=== PATIENT | female | born 1975 | race Caucasian/White ===

== ENCOUNTER 2017-12-07 07:38 | Emergency (ER) | payer OTHER, SELFPAY ==
[2017-12-07 07:51] VITALS: BP 120/83; PULSE 93; RESP 20; TEMP 37.3; O2SAT 98; BMI 30.7
--- NOTE | 2017-12-07 08:08 | DI.US.S_ITS ---
PROCEDURE: US PELVIC COMPLETE INDICATIONS: PAIN, SPOTTING TECHNIQUE: Real-time scanning was performed of the pelvic organs, with image documentation. Additional endovaginal scanning was necessary due to incomplete visualization of the adnexal and endometrial structures by transabdominal scanning. COMPARISON: [facility], US, PELVIC COMPLETE, 04/28/2017, 15:10. FINDINGS: Transabdominal scanning: Limited scanning through the kidneys shows no hydronephrosis. No pathologic free abdominal or pelvic fluid. Endovaginal scanning: Uterus: Uterus is normal in size at 9.4 x 5.4 x 7.1 cm. The endometrium measures 13.1 mm in combined thickness. There is a mid anterior, mid, intramural focus of heterogenicity measuring 13 x 7 x 16 mm. Previously identified focus of increased vascularity within the endometrium as noted on prior exam is not visualized on today's study. Ovaries: Right ovary measures 15 x 25 x 23 mm. A focus of hypoechogenicity is identified measuring 21 x 13 x 16 mm. The left ovary measures 40 x 36 x 38 mm. It is unremarkable. There is approximately 13 cc of fluid in the cul-de-sac, with areas of low level echoes. IMPRESSION: 1. Uterine fibroid. 2. Fluid within the cul-de-sac demonstrating low level echoes which could be represent a complex fluid such as blood. Etiology is uncertain. Dictated by: Tova Grider M.D. on 12/07/2017 at 8:44 Approved by: Tova Grider M.D. on 12/07/2017 at 8:49
[2017-12-07 08:52] LABS: Bacteria Urine None Seen
[2017-12-07 08:56] LABS: Add Manual Diff / Slide Review NO; Basophils Percent Auto 0.7 % (0-2); Eosinophils Percent Auto 1.3 % (2-4); Hematocrit 38.4 % (36-46); Hemoglobin 12.6 g/dL (12.0-16.0); Lymphocytes Percent Auto 19.7 % (25-40); Mean Corpuscular HGB Conc 32.9 % (30-36); Mean Corpuscular Hemoglobin 27.7 PG (26-34); Mean Corpuscular Volume 84.3 fL (80-100); Monocytes Percent Auto 5.7 % (3-14); Neutrophils Absolute Auto 8300 /uL (3000-5900); Neutrophils Percent Auto 72.6 % (50-75); Platelet Count 309 X10^3/uL (150-400); Red Blood Cell Count 4.56 X10^6/uL (4.0-5.2); Red Cell Distribution Width 14.1 % (11.6-14.8); White Blood Cell Count 11.5 X10^3/uL (4.5-11.0)
[2017-12-07] MEDS: SODIUM CHLORIDE 0.9% 1,000 ML 1000 ML IV (08:59)
[2017-12-07] MEDS: KETOROLAC 15 MG/ML VIAL IV (08:59)
[2017-12-07 09:08] LABS: Alanine Aminotransferase 42 IU/L (9-52); Albumin 4.2 g/dL (3.5-5.0); Albumin Globulin Ratio 1.3 (1.0-2.8); Alkaline Phosphatase 77 U/L (38-126); Aspartate Aminotransferase 25 IU/L (14-36); BUN Creatinine Ratio 17.1 (6-22); Bilirubin Total 0.8 mg/dL (0.2-1.3); Blood Urea Nitrogen 12 mg/dL (7-17); Carbon Dioxide 25 mmol/L (22-32); Chloride 105 mmol/L (98-107); Estimated Glomerular Filt Rate > 60.0 mL/min (>60); Globulin 3.3 g/dL (1.7-4.1); Glucose 115 mg/dL (70-100); HEMOLYSIS < 15 (0-50); Potassium 4.1 mmol/L (3.4-5.1); Sodium 142 mmol/L (137-145); Total Protein 7.5 g/dL (6.3-8.2)
[2017-12-07 09:13] LABS: Amorphous Sediment Urine 2+; Culture Indicated Urine Specimen Cultured; RBC Urine 10-30/HPF (0-5/HPF); WBC Urine 5-10/HPF (0-5/HPF)
--- NOTE | 2017-12-07 09:16 | ED_ITS ---
HPI - Abdominal Pain General Chief Complaint: Abdominal Pain Stated Complaint: ABDOMINAL CRAMPS Time Seen by Provider: 12/07/17 07:41 Source: patient and family Mode of arrival: ambulatory Limitations: no limitations History of Present Illness HPI narrative: Patient with history endometrial ablation in April presents to the emergency department with 7 days episodic pelvic cramping with vaginal spotting. She has not had period since the procedure and states the spotting is the 1st vaginal bleeding since April. She states it feels like she is in labor. The intense pain last perhaps 1 min with about a 10 min break until the next episode. She denies provocation, palliation or radiation. She has had no fever or chills. MD complaint: abdominal pain Onset (ago): day(s) Pain Consistency: intermittent Location: suprapubic Severity: severe Quality: cramping Radiation: none Migration to: no migration Relieving factors: nothing Exacerbating factors: nothing Associated symptoms: nausea (With pain) Related Data Home Medications Medication Instructions Recorded Confirmed VITAMIN D (Vitamin D3) 5,000 mg OR Q DAY #0 04/28/17 norethindrone (contraceptive) #84 04/30/17 [Jolivette] Previous Rx's Medication Instructions Recorded medroxyprogesterone 20 mg PO Q2HP PRN #30 tab 04/28/17 cephalexin [Keflex] 500 mg PO QID 5 Days #20 cap 12/07/17 hydrocodone-acetaminophen 1 tab PO Q4-6H PRN #14 tab 12/07/17 ondansetron [Zofran ODT] 4 mg PO Q6H PRN #14 tab 12/07/17 Allergies Allergy/AdvReac Type Severity Reaction Status Date / Time No Known Allergies Allergy Uncoded 12/07/17 07:55 Review of Systems Review of Systems All systems reviewed & are unremarkable except as noted in HPI and below Constitutional Denies chills, Denies fever(s), Denies lethargy and Denies weakness Eyes Denies change in vision, Denies eye discharge, Denies irritation and Denies loss of vision ENT Ears, Nose, Mouth, and Throat: Denies change in voice, Denies neck pain and Denies sore throat Cardiovascular Denies chest pain, Denies irregular heart rhythm, Denies lightheadedness, Denies palpitations, Denies dyspnea, Denies dyspnea on exertion and Denies orthopnea Respiratory Denies cough, Denies dyspnea, Denies dyspnea on exertion and Denies wheezing Gastrointestinal Gastrointestinal: Denies abdominal pain, Denies change in bowel habits, Denies diarrhea, Denies nausea and Denies vomiting Genitourinary Reports abnormal vaginal bleeding, Denies hematuria, Reports pelvic pain, Denies flank pain, Denies urinary incontinence and Denies urinary urgency Musculoskeletal Denies neck pain Integumentary/Breasts Denies pruritus, Denies erythema, Denies rash and Denies wounds Neurologic Denies confusion, Denies loss of vision and Denies weakness Psychiatric Denies anxiety, Denies confusion, Denies depression, Denies homicidal ideation and Denies suicidal ideation Endocrine Denies palpitations Hematologic/Lymphatic Denies easy bruising Allergic/Immunologic Denies wheezing PFSH Surgical History Status post delivery Status post dilation and curettage (04/29/17) Social History Smoking Status: Never smoker Exam Narrative Exam Narrative: Pleasant 41-year-old female in no obvious distress, not currently having pain, between episodes Initial Vital Signs Initial Vital Signs: Vital Signs Temperature 99.1 F 12/07/17 07:51 Pulse Rate 93 H 12/07/17 07:51 Respiratory Rate 20 12/07/17 07:51 Blood Pressure 120/83 H 12/07/17 07:51 Pulse Oximetry 98 12/07/17 07:51 Const General: cooperative and well developed Nutritional Appearance: well nourished Orientation: alert, awake, oriented x3 and not confused [facility] Head: normocephalic and atraumatic Ears: external ears normal and TM's normal bilaterally Nose: external nose normal and No nasal discharge Face and sinus: sinuses nontender, face symmetric, no sinus tenderness and No dry mucous membranes Mouth: oral mucosae normal and moist mucous membranes Teeth and gingiva: dentition normal Throat: tonsils normal and uvula midline Resp Effort & Inspection: normal respiratory effort, able to speak in complete sentences, no respiratory distress and no use of accessory muscles Auscultation: clear to auscultation bilaterally, no rales, no rhonchi and no wheezes GI Inspection: non-distended Palpation: soft, no hepatosplenomegaly, No guarding, No pulsatile mass and tender (Suprapubic) Auscultation: normal bowel sounds Back/Spine/Pelvis Back: No CVA tenderness Cervical Spine: cervical ROM normal and No pain with cervical ROM Thoracic/Lumbar Spine: thoracic and lumbar spine normal to inspection Neuro General: alert, awake and oriented x3 Cognition: normal cognition Speech: speech normal Psych Appearance: grossly normal and well kempt Mental Status: mental status grossly normal Speech and Movement: speech and movement normal Mood: congruent mood Affect: normal affect Course Orders Ordered: ED Orders 12/07/17 08:08 US pelvic complete Stat 12/07/17 08:40 Complete Blood Count AUTO DIFF Stat Comprehensive Metabolic Panel Stat Urine Culture Stat Urine Microscopic Stat Discontinued Medications Sodium Chloride (Normal Saline 0.9%) 1,000 mls @ 1,000 mls/hr IV BOLUS ONE Stop: 12/07/17 09:07 Last Infusion: 12/07/17 09:56 Dose: 0 mls/hr Admin: 12/07/17 08:59 Dose: 1,000 mls/hr Ketorolac Tromethamine (Toradol) 15 mg IV NOW ONE Stop: 12/07/17 08:09 Last Admin: 12/07/17 08:59 Dose: 15 mg Vital Signs - 8 hr 12/07/17 09:56 12/07/17 10:47 Temperature 99.1 F 99.1 F Pulse Rate 73 Respiratory Rate 18 Blood Pressure 110/71 Pulse Oximetry 99 MDM - Abdominal Pain Lab Data Result diagrams: 12/07/17 08:40 12/07/17 08:40 Lab Results 12/07/17 12/07/17 12/07/17 Range/Units 08:40 08:40 08:40 WBC 11.5 H (4.5-11.0) X10^3/uL RBC 4.56 (4.0-5.2) X10^6/uL Hgb 12.6 (12.0-16.0) g/dL Hct 38.4 (36-46) % MCV 84.3 (80-100) fL MCH 27.7 (26-34) PG MCHC 32.9 (30-36) % RDW 14.1 (11.6-14.8) % Plt Count 309 (150-400) X10^3/uL Neut % (Auto) 72.6 (50-75) % Lymph % (Auto) 19.7 L (25-40) % [place] % (Auto) 5.7 (3-14) % Eos % (Auto) 1.3 L (2-4) % Baso % (Auto) 0.7 (0-2) % Neut # (Auto) 8300 H (0165-5021) /uL Sodium 142 (137-145) mmol/L Potassium 4.1 (3.4-5.1) mmol/L Chloride 105 (98-107) mmol/L Carbon Dioxide 25 (22-32) mmol/L BUN 12 (7-17) mg/dL Creatinine 0.70 (0.52-1.04) mg/dL Estimated GFR > 60.0 (>60) mL/min BUN/Creatinine Ratio 17.1 (6-22) Glucose 115 H (70-100) mg/dL Calcium 9.0 (8.4-10.2) mg/dL Total Bilirubin 0.8 (0.2-1.3) mg/dL AST 25 (14-36) IU/L ALT 42 (9-52) IU/L Alkaline Phosphatase 77 (38-126) U/L Total Protein 7.5 (6.3-8.2) g/dL Albumin 4.2 (3.5-5.0) g/dL Globulin 3.3 (1.7-4.1) g/dL Albumin/Globulin Ratio 1.3 (1.0-2.8) Urine RBC 10-30/hpf H (0-5/HPF) Urine WBC 5-10/hpf H (0-5/HPF) Amorphous Sediment 2+ Urine Bacteria None seen (None) Ur Culture Indicated? Specimen cultured Micro UA Comment Not Reportable Imaging Data US - pelvis: Radiologist's impression: PROCEDURE: US PELVIC COMPLETE INDICATIONS: PAIN, SPOTTING TECHNIQUE: Real-time scanning was performed of the pelvic organs, with image documentation. Additional endovaginal scanning was necessary due to incomplete visualization of the adnexal and endometrial structures by transabdominal scanning. COMPARISON: [facility], US, PELVIC COMPLETE, 04/28/2017, 15:10. FINDINGS: Transabdominal scanning: Limited scanning through the kidneys shows no hydronephrosis. No pathologic free abdominal or pelvic fluid. Endovaginal scanning: Uterus: Uterus is normal in size at 9.4 x 5.4 x 7.1 cm. The endometrium measures 13.1 mm in combined thickness. There is a mid anterior, mid, intramural focus of heterogenicity measuring 13 x 7 x 16 mm. Previously identified focus of increased vascularity within the endometrium as noted on prior exam is not visualized on today's study. Ovaries: Right ovary measures 15 x 25 x 23 mm. A focus of hypoechogenicity is identified measuring 21 x 13 x 16 mm. The left ovary measures 40 x 36 x 38 mm. It is unremarkable. There is approximately 13 cc of fluid in the cul-de-sac, with areas of low level echoes. IMPRESSION: 1. Uterine fibroid. 2. Fluid within the cul-de-sac demonstrating low level echoes which could be represent a complex fluid such as blood. Etiology is uncertain. Dictated by: Tova Grider M.D. on 12/07/2017 at 8:44 Approved by: Tova Grider M.D. on 12/07/2017 at 8:49 Discharge Plan Departure Patient Disposition: Home, Self-Care Clinical Impression: Pelvic pain, UTI (urinary tract infection) Discharge Date/Time: 12/07/17 09:55 Interventions: ED Discharge Assessment Last Done: 12/07/17 10:47 Instructions: DI for Urinary Tract Infection (UTI), DI for Pelvic Pain Activity Restrictions/Additional Instructions: *You have been diagnosed with [ pelvic pain, UTI ] *What to do: *Take medications as directed *Follow up with your primary care provider in 2-3 days *Return to ER if you should have any new, worsening or concerning symptoms Prescriptions: New hydrocodone-acetaminophen 5-325 mg tablet 1 tab PO Q4-6H PRN (Reason: pain) Qty: 14 RF: 0 cephalexin [Keflex] 500 mg capsule 500 mg PO QID 5 Days Qty: 20 RF: 0 ondansetron [Zofran ODT] 4 mg tablet,disintegrating 4 mg PO Q6H PRN (Reason: nausea and vomiting) Qty: 14 RF: 0 No Action VITAMIN D (Vitamin D3) 5,000 mg OR Q DAY Qty: 0 RF: 0 medroxyprogesterone 10 MG tablet 20 mg PO Q2HP PRNQty: 30 RF: 0 norethindrone (contraceptive) [Jolivette] 0.35 MG tablet Qty: 84 RF: 0
[2017-12-07 09:56] VITALS: TEMP 37.3
[2017-12-07 10:47] VITALS: BP 110/71; PULSE 73; RESP 18; TEMP 37.3; O2SAT 99
== END 2017-12-07 09:55 | disposition home or self-care (01) ==
PROVIDERS: Emergency Provider Emergency Medicine
DX: N39.0 Urinary tract infection, site not specified (principal); R10.9 Unspecified abdominal pain
CPT/HCPCS: 36591; 76830; 76856; 80053; 81003; 81015; 81025; 85025; 87086; 96361; 96374; 99283; 99284; J1885

== ENCOUNTER 2020-04-24 14:20 | Emergency (ER) | payer OTHER, SELFPAY ==
[2020-04-24 14:53] VITALS: BP 128/77; PULSE 80; RESP 16; TEMP 37.3; O2SAT 98; BMI 31.7
[2020-04-24 15:47] LABS: Add Manual Diff / Slide Review NO; Basophils Absolute Auto 100 /uL (0-100); Basophils Percent Auto 0.8 % (0-2); Eosinophils Absolute Auto 200 /uL (0-450); Eosinophils Percent Auto 1.5 % (2-4); Hematocrit 39.3 % (36-46); Hemoglobin 12.8 g/dL (12.0-16.0); Lymphocytes Absolute Auto 3300 /uL (1100-4500); Lymphocytes Percent Auto 27.6 % (25-40); Mean Corpuscular HGB Conc 32.5 % (30-36); Mean Corpuscular Hemoglobin 27.9 PG (26-34); Mean Corpuscular Volume 85.9 fL (80-100); Monocytes Absolute Auto 700 /uL (0-900); Monocytes Percent Auto 5.9 % (3-14); Neutrophils Absolute Auto 7800 /uL (1500-7000); Neutrophils Percent Auto 64.2 % (50-75); Platelet Count 318 X10^3/uL (150-400); Red Blood Cell Count 4.58 X10^6/uL (4.0-5.2); Red Cell Distribution Width 13.2 % (11.6-14.8); White Blood Cell Count 12.1 X10^3/uL (4.5-11.0)
--- NOTE | 2020-04-24 15:52 | ED_ITS ---
HPI - General Adult General Chief complaint: Abdominal Pain Stated complaint: ABD PAIN Time Seen by Provider: 04/24/20 15:33 Source: patient Mode of arrival: Ambulatory Limitations: no limitations History of Present Illness HPI narrative: Patient is a 44-year-old female here for evaluation of pelvic cramping, bilateral lower abdominal pain and also some discomfort with having bowel movements. She denies any urinary symptoms. She states that several years ago she had vaginal bleeding to the point where she needed a blood transfusion and needed a endometrial ablation. She had that done here at this hospital. States since then she has not had a menstrual cycle. She is not currently on control. Approximately 4 days ago patient started having the symptoms that she presented with emergency department today. States she still can have a bowel movement and is only slightly tender. She does not feel like it changes her abdominal tenderness at all. She is not currently having any vaginal bleeding. No chest pain. No shortness of breath. No nausea or vomiting. Has not tried anything for symptoms prior to arrival. Related Data Home Medications Medication Instructions Recorded Confirmed VITAMIN D (Vitamin D3) 5,000 mg OR Q DAY #0 04/28/17 12/14/17 norethindrone (contraceptive) #84 04/30/17 12/14/17 [Tim] Previous Rx's Medication Instructions Recorded medroxyprogesterone 20 mg PO Q2HP PRN #30 tab 04/28/17 hydrocodone-acetaminophen 1 tab PO Q4-6H PRN #14 tab 12/07/17 ondansetron [Zofran ODT] 4 mg PO Q6H PRN #14 tab 12/07/17 Allergies Allergy/AdvReac Type Severity Reaction Status Date / Time No Known Allergies Allergy Uncoded 12/14/17 13:00 Review of Systems Constitutional Constitutional: Denies fever(s) and Denies headache(s) ENT Ears, Nose, Mouth, and Throat: Denies headache(s) Cardiovascular Cardiovascular: Denies chest pain and Denies dyspnea Respiratory Respiratory: Denies dyspnea Gastrointestinal Gastrointestinal: Reports abdominal pain, Denies nausea and Denies vomiting Comments: Pain with bowel movements Genitourinary Genitourinary: Denies dysuria Genitourinary: Denies dysuria and Denies vaginal discharge Musculoskeletal Musculoskeletal: Denies arthralgias and Denies arthralgias Integumentary/Breasts Skin/Breast: Denies lesions and Denies rash Neurologic Neurologic: Denies behavioral changes and Denies headache(s) Psychiatric Psychiatric: Denies anxiety and Denies behavioral changes Hematologic/Lymphatic Hematologic/Lymphatic: Denies easy bleeding and Denies easy bruising Patient History Medical History Acute blood loss anemia (Inactive) Menorrhagia (Inactive) Palpitations (Inactive) Transfusion of blood during current hospitalisation (Inactive) Surgical History (Updated 12/11/17 @ 12:03 by Gail Chavez) Status post delivery (Resolved 2009) Status post dilation and curettage (Resolved 04/29/17) Status post endometrial ablation (Resolved 04/29/17) Social History Smoking Status: Never smoker Smoking Status: Never smoker alcohol intake frequency: holidays/special occasions only Substance Use Type: does not use Exam Initial Vital Signs Initial Vital Signs: Vital Signs Temperature 99.1 F 04/24/20 14:53 Pulse Rate 80 04/24/20 14:53 Respiratory Rate 16 04/24/20 14:53 Blood Pressure 128/77 04/24/20 14:53 Pulse Oximetry 98 04/24/20 14:53 Const General: cooperative and comfortable Limitations: mental status not altered HENMT Head: normal to inspection and normocephalic Resp Effort & Inspection: normal respiratory effort Auscultation: clear to auscultation bilaterally Cardio Rate: regular rate Rhythm: regular rhythm GI Inspection: non-distended Palpation: soft, No firm and tender (Bilateral lower abdomen without rebound or guarding) Back/Spine/Pelvis Back: No CVA tenderness Skin Lesions: no lesions Rashes: no rashes Neuro General: patient alert, patient awake and patient oriented x3 Cognition: normal cognition Speech: speech normal Extrem General: normal to inspection and capillary refill normal Psych Appearance: grossly normal and well kempt Course Orders Ordered: ED Orders 04/24/20 15:42 Complete Blood Count AUTO DIFF Stat Comprehensive Metabolic Panel Stat Lipase Stat Partial Thromboplastin Time Stat Prothrombin Time INR Stat 04/24/20 15:52 US pelvic complete Stat 04/24/20 18:29 CT abdomen pelvis w con Stat Vital Signs Vital signs: Vital Signs - 8 hr 04/24/20 14:53 04/24/20 17:12 Temperature 99.1 F Pulse Rate 80 85 Respiratory Rate 16 16 Blood Pressure 128/77 131/60 Pulse Oximetry 98 99 Medical Decision Making Lab Data Lab results reviewed: Yes I reviewed the patient's lab results. Result diagrams: 04/24/20 15:42 04/24/20 15:42 Labs: Lab Results 04/24/20 04/24/20 04/24/20 Range/Units 15:42 15:42 15:42 WBC 12.1 H (4.5-11.0) X10^3/uL RBC 4.58 (4.0-5.2) X10^6/uL Hgb 12.8 (12.0-16.0) g/dL Hct 39.3 (36-46) % MCV 85.9 (80-100) fL MCH 27.9 (26-34) PG MCHC 32.5 (30-36) % RDW 13.2 (11.6-14.8) % Plt Count 318 (150-400) X10^3/uL Neut % (Auto) 64.2 (50-75) % Lymph % (Auto) 27.6 (25-40) % Evans % (Auto) 5.9 (3-14) % Eos % (Auto) 1.5 L (2-4) % Baso % (Auto) 0.8 (0-2) % Neut # (Auto) 7800 H (8300-2427) /uL Lymph # (Auto) 3300 (4318-9386) /uL Evans # (Auto) 700 (0-900) /uL Eos # (Auto) 200 (0-450) /uL Baso # (Auto) 100 (0-100) /uL PT 11.8 (10.1-12.7) SECONDS INR 1.0 (0.9-1.3) APTT 34 (26.4-36.2) SECONDS Sodium 138 (137-145) mmol/L Potassium 4.1 (3.4-5.1) mmol/L Chloride 105 (98-107) mmol/L Carbon Dioxide 27 (22-32) mmol/L BUN 13 (7-17) mg/dL Creatinine 0.74 (0.52-1.04) mg/dL Estimated GFR > 60.0 (>60) mL/min BUN/Creatinine Ratio 17.6 (6-22) Glucose 90 (70-100) mg/dL Calcium 9.4 (8.4-10.2) mg/dL Total Bilirubin 0.6 (0.2-1.3) mg/dL AST 45 H (14-36) IU/L ALT 58 H (<35) IU/L Alkaline Phosphatase 88 (38-126) U/L Total Protein 8.2 (6.3-8.2) g/dL Albumin 4.5 (3.5-5.0) g/dL Globulin 3.7 (1.7-4.1) g/dL Albumin/Globulin Ratio 1.2 (1.0-2.8) Lipase 115 (23-300) U/L Point of Care Testing Test Results Negative Urine Dip Bedside Urine Glucose Negative Bedside Urine Bilirubin - Negative Bedside Urine Ketone - Negative Urine Specific [place] 1.015 Bedside Urine Occult Blood +++ Bedside Urine pH 6.0 Bedside Urine Protein - Negative Bedside Urine Urobilinogen - Negative Bedside Urine Nitrite - Negative Bedside Urine Leukocytes - Negative Esterase Point of care testing: Point of Care Testing Test Results Negative Urine Dip Bedside Urine Glucose Negative Bedside Urine Bilirubin - Negative Bedside Urine Ketone - Negative Urine Specific [place] 1.015 Bedside Urine Occult Blood +++ Bedside Urine pH 6.0 Bedside Urine Protein - Negative Bedside Urine Urobilinogen - Negative Bedside Urine Nitrite - Negative Bedside Urine Leukocytes - Negative Esterase Imaging Data CT scan - abdomen/pelvis: Radiologist's Impression: [address] [address] [address] Scan Report Signed Patient: Laura De La Rosa BMR#: [id number] : 1975Acct:[id number] Age/Sex: 44 / FDate of Service: 04/24/20 Loc: ED Accession Number: [id number] Procedure: CT abdomen pelvis w con Ordering Provider: Dax Post D.O. PROCEDURE: CT ABDOMEN PELVIS W CON INDICATIONS: Lower abdominal pain with rectal pain TECHNIQUE: After the administration of intravenous contrast, 5 mm thick sections acquired from the diaphragm to the symphysis. 5 mm coronal and sagittal reformats were acquired. For radiation dose reduction, the following was used: automated exposure control, adjustment of mA and/or kV according to patient size. COMPARISON: [facility], PELVIC COMPLETE, 04/24/2020, 16:10. [facility], [place] PELVIC COMPLETE, 12/07/2017, 8:18. FINDINGS: Image quality: Excellent. ABDOMEN: Lung bases: Lung bases are clear. Heart size is normal. Solid organs: Liver is enlarged with steatosis. Gallbladder is unremarkable . Biliary system is non dilated. Pancreas enhances normally. Spleen is normal in size and enhancement. No adrenal nodules. Kidneys demonstrate normal size and enhancement, without hydronephrosis. Peritoneum and bowel: Bowel loops demonstrate normal wall thickness and caliber. No free fluid or air. Nodes and vessels: No retroperitoneal or mesenteric adenopathy by size criteria. Aorta and inferior vena cava are normal in size. Miscellaneous: No ventral hernias. PELVIS: Genitourinary: Bladder wall thickness is normal. Bilateral ovarian cysts are present. Appearing contiguous with the left adnexa and coursing along the left lateral aspect of the uterus, low-attenuation collection is identified measuring 5.2 cm in transverse dimension. There is a minimal appearance of stranding within the adjacent mesenteric fat. This corresponds to area of abnormality identified on ultrasound. Miscellaneous: No inguinal hernias or adenopathy. Bones: No suspicious bony lesions. No vertebral body compression fractures. IMPRESSION: 1. Low-attenuation collections suggestive of fluid appearing contiguous with the left adnexa and uterus. It is somewhat nonspecific in appearance on both ultrasound and CT exam. Differential diagnosis includes hydro/pyosalpinx or abscess. Recommend short interval imaging follow-up after appropriate therapy to document resolution as well as CHIEF LOAD DISPATCHER consult is indicated. Dictated by: Tova Grider M.D. on 04/24/2020 at 18:47 Approved by: Tova Grider M.D. on 04/24/2020 at 19:00 US - CHIEF LOAD DISPATCHER: Radiologist's Impression: [address] [address] Ultrasound Report Signed Patient: Laura De La Rosa BMR#: [id number] : 1975Acct:[id number] Age/Sex: 44 / FDate of Service: 04/24/20 Loc: ED Accession Number: [id number] Procedure: US pelvic complete Ordering Provider: Dax Post D.O. PROCEDURE: US PELVIC COMPLETE INDICATIONS: CRAMPING AND NO PERIOD FOR 3 YEARS. TECHNIQUE: Real-time scanning was performed of the pelvic organs, with image documentation. Additional endovaginal scanning was necessary due to incomplete visualization of the adnexal and endometrial structures by transabdominal scanning. COMPARISON: [facility], [place], US PELVIC COMPLETE, 12/07/2017, 8:18. FINDINGS: Transabdominal scanning: Limited scanning through the kidneys shows no hydronephrosis. No pathologic free abdominal or pelvic fluid. Endovaginal scanning: Uterus: Uterus is normal in size at 11.7 x 7.3 6.5 cm. The endometrium measures 12.8 mm in combined thickness. There is a mid anterior intramural focus of heterogenous echognicity measuring 13 mm x 14 mm x 13 mm compared to 13 mm x 7 mm x 16 mm. Similar focus of echogenicity in the right anterior intramural focus measruing 11 mm x 10 mm x 8 mm. Nabothian cysts are noted. Ovaries: Right ovary measuring 45 mm x 29 mm x 26 mm. Left ovary measures 75 mm x 60 mm x 45 mm. Right ovarian cyst measures 26 mm x 19 mm x 15 mm. Left ovarian cyst is noted measuring 36 x 40 x 41 mm. There is a tubular structure extending within the region of the left adnexa. IMPRESSION: 1. Bilateral ovarian cysts. 2. Tubular structure within the region of the left adnexa. [place]/pyosalpinx cannot be excluded. 3. Foci of heterogeneous echogenicity are present within the uterus suggestive of small fibroids. Dictated by: Tova Grider M.D. on 04/24/2020 at 17:32 Approved by: Tova Grider M.D. on 04/24/2020 at 17:50 MDM Narrative Medical decision making narrative: Patient does have a leukocytosis without a left shift. She is afebrile. She does have a benign exam. Initially started with a ultrasound which showed the left-sided findings. Also bilateral ovarian cyst. I did discuss the case with Dr. Bruce who is on-call for ceramic chemist who stated that this is most likely hydrosalpinx after her ablation and recommended the patient follow-up in her clinic. I went back and discussed this with the patient. I did feel that given her issues with bowel movements that a CT scan would be warranted to evaluate other potential etiology. This was ordered and does for the most part support the findings on the ultrasound. There was some question on the ultrasound and the CT scan about a potential abscess and this wa s considered given her leukocytosis but I feel given the lack of her other symptoms and the lack of a left shift despite the leukocytosis in the lack of a fever that we will hold on antibiotics for now. Patient was given follow-up instruction in phone number for Dr. Bruce. Patient was given strict return precautions. She expressed understanding and agreement. Discharge Plan Departure Patient Disposition: Home Clinical Impression: Hydrosalpinx Instructions: DI for Abdominal Pain-Adult Activity Restrictions/Additional Instructions: I did discuss her case this evening with Dr. Bruce. She would like to see you in clinic in follow-up. You can contact the [facility] at [phone]. If you do not hear from them by tomorrow morning please contact them for a follow-up. Return to the emergency department for any new or worsening symptoms like we discussed Prescriptions: No Action VITAMIN D (Vitamin D3) 5,000 mg OR Q DAY Qty: 0 RF: 0 medroxyprogesterone 10 MG tablet 20 mg PO Q2HP PRNQty: 30 RF: 0 norethindrone (contraceptive) [[place]] 0.35 MG tablet Qty: 84 RF: 0 hydrocodone-acetaminophen 5-325 mg tablet 1 tab PO Q4-6H PRN (Reason: pain) Qty: 14 RF: 0 ondansetron [Zofran ODT] 4 mg tablet,disintegrating 4 mg PO Q6H PRN (Reason: nausea and vomiting) Qty: 14 RF: 0
[2020-04-24 15:54] LABS: Prothrombin Time 11.8 SECONDS (10.1-12.7)
[2020-04-24 15:57] LABS: PTT Partial Thromboplastin Tim 34 SECONDS (26.4-36.2)
[2020-04-24 16:00] LABS: Alanine Aminotransferase 58 IU/L (<35); Albumin 4.5 g/dL (3.5-5.0); Albumin Globulin Ratio 1.2 (1.0-2.8); Alkaline Phosphatase 88 U/L (38-126); Aspartate Aminotransferase 45 IU/L (14-36); BUN Creatinine Ratio 17.6 (6-22); Bilirubin Total 0.6 mg/dL (0.2-1.3); Blood Urea Nitrogen 13 mg/dL (7-17); Calcium 9.4 mg/dL (8.4-10.2); Carbon Dioxide 27 mmol/L (22-32); Chloride 105 mmol/L (98-107); Estimated Glomerular Filt Rate > 60.0 mL/min (>60); Globulin 3.7 g/dL (1.7-4.1); Glucose 90 mg/dL (70-100); HEMOLYSIS < 15 (0-50); Lipase 115 U/L (23-300); Potassium 4.1 mmol/L (3.4-5.1); Sodium 138 mmol/L (137-145); Total Protein 8.2 g/dL (6.3-8.2)
[2020-04-24 17:12] VITALS: BP 131/60; PULSE 85; RESP 16; O2SAT 99
--- NOTE | 2020-04-24 18:29 | DI.CT.S_ITS ---
PROCEDURE: CT ABDOMEN PELVIS W CON INDICATIONS: Lower abdominal pain with rectal pain TECHNIQUE: After the administration of intravenous contrast, 5 mm thick sections acquired from the diaphragm to the symphysis. 5 mm coronal and sagittal reformats were acquired. For radiation dose reduction, the following was used: automated exposure control, adjustment of mA and/or kV according to patient size. COMPARISON: [facility], , PELVIC COMPLETE, 04/24/2020, 16:10. [facility], , PELVIC COMPLETE, 12/07/2017, 8:18. FINDINGS: Image quality: Excellent. ABDOMEN: Lung bases: Lung bases are clear. Heart size is normal. Solid organs: Liver is enlarged with steatosis. Gallbladder is unremarkable . Biliary system is non dilated. Pancreas enhances normally. Spleen is normal in size and enhancement. No adrenal nodules. Kidneys demonstrate normal size and enhancement, without hydronephrosis. Peritoneum and bowel: Bowel loops demonstrate normal wall thickness and caliber. No free fluid or air. Nodes and vessels: No retroperitoneal or mesenteric adenopathy by size criteria. Aorta and inferior vena cava are normal in size. Miscellaneous: No ventral hernias. PELVIS: Genitourinary: Bladder wall thickness is normal. Bilateral ovarian cysts are present. Appearing contiguous with the left adnexa and coursing along the left lateral aspect of the uterus, low-attenuation collection is identified measuring 5.2 cm in transverse dimension. There is a minimal appearance of stranding within the adjacent mesenteric fat. This corresponds to area of abnormality identified on ultrasound. Miscellaneous: No inguinal hernias or adenopathy. Bones: No suspicious bony lesions. No vertebral body compression fractures. IMPRESSION: 1. Low-attenuation collections suggestive of fluid appearing contiguous with the left adnexa and uterus. It is somewhat nonspecific in appearance on both ultrasound and CT exam. Differential diagnosis includes hydro/pyosalpinx or abscess. Recommend short interval imaging follow-up after appropriate therapy to document resolution as well as AUTOC[employer] ELECTRICAL DESIGNER consult is indicated. Dictated by: Tova Grider M.D. on 04/24/2020 at 18:47 Approved by: oTva Grider M.D. on 04/24/2020 at 19:00
== END 2020-04-24 19:16 | disposition home or self-care (01) ==
PROVIDERS: Emergency Provider Emergency Medicine
DX: N70.11 Chronic salpingitis (principal); R10.30 Lower abdominal pain, unspecified; K62.89 Other specified diseases of anus and rectum; R10.2 Pelvic and perineal pain
CPT/HCPCS: 36415; 74177; 76856; 80053; 81003; 81025; 83690; 85025; 85610; 85730; 99284; Q9967

== ENCOUNTER → 2020-05-30 07:59 | Outpatient (CLI) | payer OTHER, SELFPAY ==
[2020-05-30 09:02] LABS: COVID19 -Nasal RAPID Negative (Negative)
== END ==
PROVIDERS: Visit Provider Obstetrics & Gynecology
DX: Z01.812 Encounter for preprocedural laboratory examination (principal); Z20.828 Contact with and (suspected) exposure to other viral communicable diseases
CPT/HCPCS: 87635

== ENCOUNTER 2020-05-31 06:26 | Day surgery (SDC) | payer OTHER, SELFPAY ==
[2020-05-30 12:05] VITALS: BMI 32.2
[2020-05-31] VITALS (11 sets, daily range): BP systolic 104–120; BP diastolic 61–95; PULSE 73–96; RESP 14–19; TEMP 36.4–36.8; O2SAT 95–100; BMI 32.2
--- NOTE | 2020-05-31 | PATH_ITS ---
[facility] Accession Number: [id number] . 01 Material submitted: . PART A: umbilicus - INTRA UMBILICAL MOLE PART B: uterus - UTERUS AND BILATERAL FALLOPIAN TUBES WITH CYSTS . 01 Diagnosis: A. Skin, Intra Umbilical, Biopsy: Final diagnosis pending additional sections/stain (will be reviewed and reported as an addendum by dermatopathology service). . B. Uterus and Bilateral Fallopian Tubes, Supracervical Hysterectomy and Bilateral Salpingectomy: Endometrium: Focal complex hyperplasia without atypia and background disordered proliferative. Myometrium: No significant pathologic abnormality. Bilateral fallopian tubes: Multifocal endometriosis (serosal and subserosal) and benign paratubal cyst. [facility] 06/05/2020 1341 Local . 01 Electronically signed: . Maame Singh MD, Pathologist NPI- [id number] . 01 Gross description: . A. Received in formalin, labeled with the patient's name and intra-umbilical mole, is a light brown unoriented skin shave, 0.6 x 0.5 x 0.3 cm, with a 0.4 x 0.2 cm dark brown keratotic lesion at epidermal surface, 0.1 cm to nearest resection margin (margin inked blue). The specimen is quadrisected and entirely submitted. . Summary of sections: A1. One piece inked blue, quadrisected. . B. Received in formalin, labeled with the patient's name and uterus and bilateral fallopian tubes with cysts, is a supracervically amputated and morcellated uterus, with bilateral fimbriated fallopian tubes in container. The morcellated uterus fragments, 100 grams, 7.0 x 7.0 x 2.5 cm in aggregate, are covered with purple-wilson smooth dull serosa, and consist of pink-wilson trabeculated myometrium, maximum thickness 2.0 cm in one fragment, and pink-wilson flat endometrium up to 0.2 cm thick. No myometrial nodules or lesions identified. The two fimbriated fallopian tubes in the container measure 4.5-6.0 cm length, 0.5-0.8 cm diameter; one fallopian tube has a 2.0 cm paratubal cyst present at distal aspect. Cervix is absent. Tooler sections are submitted. . Summary of sections: B1. Endometrium, two pieces. B2. Endometrium and myometrium, not full-thickness, two pieces. B3. [place] fallopian tube, fimbria and cross-sections, four pieces. B4. Longer fallopian tube, fimbria and cross-section, three pieces. B5. Fallopian tube cross-section with paratubal cyst, one piece. ([id number]) /MRV 06/01/2020 1435 Local . 01 Pathologist provided ICD-10: N94.6 . 01 CPT . 884191, [id number] Performed at: 01 [facility] [address] [place] [address], [place], [place] [id number] MD Karan Rivas MD Phone: [phone]
[2020-05-31] MEDS: LACTATED RINGERS 1,000 ML 42 ML IV (07:10)
[2020-05-31] MEDS: ACETAMINOPHEN 325 MG TABLET 975 MG PO (07:15)
--- NOTE | 2020-05-31 07:39 | PM.PREOP ---
Pre-operative Note COVID-19 COVID-19 status: Negative Result date/Date tested (Pos, Neg/Pending): 05/30/20 Interval Note History & Physical reviewed/Exam performed by Physician: Yes Changes to H&P: No H&P completed within 30 days and has changed as indicated here:: 05/30/20
[2020-05-31] MEDS: CEFAZOLIN 2 GM/100 ML FROZ.PIGGY IV (07:54)
--- NOTE | 2020-05-31 08:27 | SUR.OPER ---
Lithotomy on padded OR bed. [place] Pad Positioner under torso. Head on pillow, arms padded and tucked at sides. Legs secured in padded yellow fins stirrups.
[2020-05-31] MEDS: ROPIVACAINE 0.2% PF 2 MG/ML 10ML AMP 20 ML INJ (08:41)
[2020-05-31] MEDS: BUPIVACAINE 0.5% W/ EPI (PF) 30 ML VIAL INJ (08:42)
--- NOTE | 2020-05-31 09:47 | PM.GYNOP.1 ---
Operative Date/Time/Diagnoses Date of procedure: 05/31/20 Time of procedure: 09:48 Pre-op diagnosis: Fibroid uterus Hydrosalpinx Severe dysmenorrhea Ovarian cyst Status post endometrial ablation Post-op diagnosis: same Procedure & Clinicians Procedure: Procedures Operation Date: 05/31/20 07:45 Actual Procedures Side Surgeon p Laparoscopic Supracervical Hysterectomy/ Bilateral Salpingectomies, Removal of Ovarian Cysts, excision of intra umbilical mole, lysis of adhesions Eli Bruce MD Indications: Fibroid uterus Severe dysmenorrhea Hydrosalpinx Ovarian cyst Status post endometrial ablation Surgeon: Eli Bruce [employer] Light Fixture Assembler: Isha Spangler Anesthesia Type: General and Local Operative Notes Findings: Twelve week size multi fibroid uterus Hydrosalpinx on the left Ovarian cyst on the left Adhesions between the posterior uterus and cul-de-sac Adhesions between the bowel and the left side of the uterus Adhesions between the left adnexa and the uterus Closure Type: primary Specimen(s): left tube, right tube and uterus Applied: catheter (Removed at the end of the case) Estimated blood loss (mL): 75 Blood products transfused: none Procedure in detail: The patient was taken to the operating room where she was placed in the dorsal supine position. After adequate general endotracheal anesthesia was achieved, she was placed in the dorsal lithotomy position, and prepped and draped in the usual sterile fashion. A timeout was performed. A bivalve speculum was placed into the vagina and the anterior lip of the cervix grasped with a single-tooth tenaculum. The cervical os was sequentially dilated until the ZUMI uterine manipulator could pass easily into the endometrial cavity. The single-tooth tenaculum was removed from the anterior lip of the cervix, and the bivalve speculum was removed from the vagina. Attention was then turned to the abdomen where 6 mL of half percent Marcaine with epinephrine were injected in the umbilical fold. A 5 mm incision was made. The Verhees needle was placed into the peritoneal cavity, and its placement confirmed by aspiration and drop test. The Verhees needle was removed. A 5 mm trocar was placed without difficulty. 2 other incisions were made midway between the pubic symphysis and umbilicus after 5 mL of half percent Marcaine with epinephrine were injected. These were 5 mm incisions. Two 5 mm trochars were placed under direct visualization. The right tube was grasped with an atraumatic grasper. Using the plasma kinetic with settings of 40 W the mesosalpinx was cauterized and cut all the way down to the cornua of the uterus. The cornua of the uterus was then grasped with an atraumatic grasper. The utero-ovarian ligaments were cauterized and cut. The round ligament and broad ligament was cauterized and cut with plasma kinetic. Hemostasis was achieved. The bladder flap was created using the plasma kinetic with cautery and cut nursing home across. The uterine arteries on the right side were extensively cauterized with plasma kinetic. All of this was repeated on the left side after the adhesions were taken down between the bowel and the uterus with the Endo Danielle, and the adnexa and the uterus. The remainder of the bladder flap was created using the plasma kinetic, and the bladder taken down off the lower uterine segment and cervix. Using the Endoloop, the cervix was amputated from the uterus 2 cm above the uterosacral ligaments, after the ZUMI uterine manipulator was removed from the uterus. There was a small amount of bleeding noted from the posterior edge of the cervix, and this was cauterized for hemostasis. A sponge stick was placed into the vagina. 6 mL of half percent Marcaine with epinephrine were injected above the pubic symphysis. A 12 mm trocar was placed. An Endobag was placed through the suprapubic trocar and the uterus placed into the Endobag. The trocar was removed. The Raul placed into the endobag. The uterus was hand morcellated in approximately 10 pieces. The Endobag was removed from the peritoneal cavity. The pelvis was copiously irrigated with warm normal saline. No bleeding was noted. The instruments are removed from the abdomen. The CO2 was allowed to escape. The suprapubic incision was closed on the fascia with 0 Vicryl. All of the incisions were closed with 4-0 Biosyn in a subcuticular fashion. The moistened sponge stick was removed from the vagina. Sponge, lap, and instrument counts were correct x-2. The patient tolerated the procedure well, was taken to PACU in stable condition. The operations and intelligence assistant, Dr. spangler, did the right side of the uterus with retraction of the right cornua by the primary surgeon. She cauterized and cut the mesosalpinx all the way down to the cornua. She cauterized and cut the utero-ovarian vessels, the broad ligament, the round ligament, and created the bladder flap from the right side. She then cauterized the uterine arteries on the right side. The left side was performed by the primary surgeon, with retraction of the left tube and then cornua of the uterus by the operations and intelligence assistant. With aid of the operations and intelligence assistant, the Ban loop was placed 2 cm above the uterosacral ligaments while both tubes were brought through the loop. With traction on the fundus of the uterus by the operations and intelligence assistant, the uterus was amputated with the Ban loop. The operations and intelligence assistant then held on to the uterus while the endobag was placed. The operations and intelligence assistant then placed the uterus and tubes into the endobag. The operations and intelligence assistant retracted well the suprapubic incision was extended on the fascia. She assisted in placement of the Raul. She assisted in morcellation of the uterus. She retracted as the fascia was closed on the suprapubic incision. Complications: none Post-operative Condition: stable Disposition: PACU Plan for aftercare: Home after recovery
[2020-05-31] MEDS: KETOROLAC 30 MG/ML VIAL IV (09:50)
--- NOTE | 2020-05-31 12:31 | SUR.PHASEII ---
Assumed care of pt at 1220. Pt up to use the restroom without any difficultly. pt voided 300ml of clear yellow urine. PVR done after completion of voiding, 57ml. Spoke with Dr. Bruce, per Dr. Teo chambers for pt to be discharged home at this time.
== END 2020-05-31 12:36 | disposition home or self-care (01) ==
LOC: OR 06:27 → AC 09:45 → OR 12:32
PROVIDERS: Referring Provider Student in an Organized Health Care Education/Training Program; Visit Provider Obstetrics & Gynecology
PROC: 0UT94ZL Resection of Uterus, Supracervical, Percutaneous Endoscopic Approach (ICD-10-PCS; CPT 58542; principal; 2020-05-31 07:45)
DX: D25.1 Intramural leiomyoma of uterus (principal); N70.11 Chronic salpingitis; N73.6 Female pelvic peritoneal adhesions (postinfective); N83.8 Other noninflammatory disorders of ovary, fallopian tube and broad ligament; N80.0 Endometriosis of uterus
CPT/HCPCS: 58542; J0330; J0690; J1100; J1885; J2250; J2405; J2704; J2795; J3010